=== PATIENT | male | born 1980 | race Caucasian/White ===

== ENCOUNTER 2016-08-14 09:40 | Emergency (ER) | payer BC ==
[~2016-08-14] VITALS: Ht 175.3 cm; Wt 99.5 kg
[~2016-08-14 09:40] MED LIST: MULT-506 PO; OXYM0.056 NAE; [UNRECOGNIZED DRUG - CODE] PO
[2016-08-14 09:42] VITALS: TEMP 37; Ht 175.3 cm; Wt 99.5 kg
[2016-08-14] MEDS ORDERED: PROMETHAZINE HCL INJ 6.25 MG in SODIUM CHLORIDE 0.9% 50ML 50 ML IV STA (10:26)
[2016-08-14] MEDS ORDERED: KETOROLAC TROMETHAMINE 30 MG/ML VIAL IV STA (10:26)
[2016-08-14] MEDS ORDERED: ONDANSETRON INJ 2 MG/ML 2 ML VIAL IV STA (10:26)
[2016-08-14] MEDS ORDERED: SODIUM CHLORIDE 0.9% 1000ML 1,000 ML IV STA ×2 (10:26)
--- NOTE | 2016-08-14 10:34 | EMERGENCY ROOM VISIT NOTE ---
History Report prepared by Cristina: Mayra Jackson Under the Supervision of: Dr. Godfrey Rendon M.D. First contact with patient: 10:23 Chief Complaint: ABDOMINAL PAIN Stated Complaint: SEVERE STOMACH PAIN, CRAMPING, DIZZINESS Nursing Triage Summary: severe abdominal pain. I have had 3 er visits in the past 6 weeks. I have lost 15 lbs since this all started. pain started again this morning about 5 am. pt denies n/v/d History of Present Illness The patient is a 35 year old male who presents to the Emergency Room with complaints of waxing and waning, diffuse abdominal pain that began this morning around 0500. He states that his discomfort ranges from 4-7/10 in severity, describing his pain as a stabbing and throbbing pain. The patient states that he has had three emergency department visits over the last six weeks. He states that first he was evaluated for pneumonia and three weeks ago he experienced uncontrolled diarrhea and vomiting. He notes that over the last three weeks he has had a weight loss of 15 lbs. The patient states that he has experienced nausea today, but denies any diarrhea. He states that he has had two bowel movements, noting that they were normal. The patient states that he has had abdominal and bowel problems for the past three years, stating that he has tried diet change multiple times. He states that gluten intolerance runs in his family. The patient denies eating any abnormal food, or being around anyone with similar symptoms. Source of History: patient Onset: 0500 this morning Position: abdomen Symptom Intensity: 4-7/10 Quality: stabbing, other (throbbing) Timing: waxes/wanes Associated Symptoms: + nausea Note: Associated symptoms: weight loss of 15 lbs. Review of Systems See HPI for pertinent positives & negatives. A total of 10 systems reviewed and were otherwise negative. Past Medical & Surgical Medical Problems: (1) No Known Active Medical Problems Family History Patient reports no known family medical history. Social History Smoking Status: Never Smoker Marital Status: Housing Status: lives with family Occupation Status: employed Current/Historical Medications Scheduled Ondasetron Odt (Zofran Odt), 4-8 MG SL Q6H Scheduled PRN Hyoscyamine Sulfate (Levsin), 0.125 MG PO Q6H PRN for Pain Allergies Coded Allergies: Amoxicillin (Verified Allergy, Intermediate, Rash, 08/14/16) Clavulanic Acid (Verified Allergy, Intermediate, Rash, 08/14/16) Physical Exam Vital Signs Date Time Temp Pulse Resp B/P Pulse Ox O2 Delivery O2 Flow Rate FiO2 08/14/16 12:40 87 16 114/67 97 08/14/16 11:51 83 16 118/74 97 08/14/16 09:42 37.0 94 18 125/84 97 Room Air Physical Exam GENERAL: Patient is in no acute distress. HEENT: No acute trauma, normocephalic atraumatic, mucous membranes moist, no nasal congestion, no scleral icterus. NECK: No stridor, no adenopathy, no meningismus, trachea is midline. LUNGS: Clear to auscultation bilaterally, no wheeze, no rhonchi, breath sounds equal. HEART: Without murmurs gallops or rubs, regular rate and rhythm. ABDOMEN: Mildly diffusely tender. Soft, bowel sounds positive, no hernias, no peritonitis. EXTREMITIES: No cyanosis or edema, full range of motion of all the joints without pain or difficulty, no signs for acute trauma. NEUROLOGIC: Oriented x 3, no acute motor or sensory deficits, no focal weakness. SKIN: No rash, no jaundice, no diaphoresis. Medical Decision & Procedures ER Provider Diagnostic Interpretation: X-ray results as stated below per interpretation by me and the radiologist: PA CHEST RADIOGRAPH AND UPRIGHT AND SUPINE AP RADIOGRAPHS OF THE ABDOMEN CLINICAL HISTORY: Nausea and diarrhea. COMPARISON STUDY: Chest radiograph and CT of the abdomen and pelvis July 15, 2016. FINDINGS: Lung volumes are normal. No pneumothorax or pleural effusion is present. Cardiac size is normal. Mediastinal contours are normal. There is no evidence of pulmonary edema. There is no free air. The bowel gas pattern is normal. IMPRESSION: 1. No free air or evidence of bowel obstruction. 2. No acute cardiopulmonary findings. Electronically signed by: David Yang M.D. 08/14/2016 11:51 AM Dictated Date/Time: 08/14/2016 11:51 AM Laboratory Results 08/14/16 11:05 Red Blood Count 5.29, Mean Corpuscular Volume 82.0, Mean Corpuscular Hemoglobin 29.9, Mean Corpuscular Hemoglobin Concent 36.4, Mean Platelet Volume 12.5, Neutrophils (%) (Auto) 86.0, Lymphocytes (%) (Auto) 7.5, Monocytes (%) (Auto) 6.0, Eosinophils (%) (Auto) 0.2, Basophils (%) (Auto) 0.2, Neutrophils # (Auto) 7.02, Lymphocytes # (Auto) 0.61, Monocytes # (Auto) 0.49, Eosinophils # (Auto) 0.02, Basophils # (Auto) 0.02 08/14/16 11:05 Test 08/14/16 11:00 08/14/16 11:05 Urine Color YELLOW Urine Appearance CLEAR (CLEAR) Urine pH 5.5 (4.5-7.5) Urine Specific [place] 1.018 (1.000-1.030) Urine Protein NEG (NEG) Urine Glucose (UA) NEG (NEG) Urine Ketones NEG (NEG) Urine Occult Blood NEG (NEG) Urine Nitrite NEG (NEG) Urine Bilirubin NEG (NEG) Urine Urobilinogen NEG (NEG) Urine Leukocyte Esterase NEG (NEG) White Blood Count 8.17 K/uL (4.8-10.8) Red Blood Count 5.29 M/uL (4.7-6.1) Hemoglobin 15.8 g/dL (14.0-18.0) Hematocrit 43.4 % (42-52) Mean Corpuscular Volume 82.0 fL (80-100) Mean Corpuscular Hemoglobin 29.9 pg (25-34) Mean Corpuscular Hemoglobin Concent 36.4 g/dl (32-36) Platelet Count 155 K/uL (130-400) Mean Platelet Volume 12.5 fL (7.4-10.4) Neutrophils (%) (Auto) 86.0 % Lymphocytes (%) (Auto) 7.5 % Monocytes (%) (Auto) 6.0 % Eosinophils (%) (Auto) 0.2 % Basophils (%) (Auto) 0.2 % Neutrophils # (Auto) 7.02 K/uL (1.4-6.5) Lymphocytes # (Auto) 0.61 K/uL (1.2-3.4) Monocytes # (Auto) 0.49 K/uL (0.11-0.59) Eosinophils # (Auto) 0.02 K/uL (0-0.5) Basophils # (Auto) 0.02 K/uL (0-0.2) RDW Standard Deviation 39.4 fL (36.4-46.3) RDW Coefficient of Variation 13.1 % (11.5-14.5) Immature Granulocyte % (Auto) 0.1 % Immature Granulocyte # (Auto) 0.01 K/uL (0.00-0.02) Anion Gap 10.0 mmol/L (3-11) Est Creatinine Clear Calc Drug Dose 117.6 ml/min Estimated GFR () 110.9 Estimated GFR (Non- 95.7 BUN/Creatinine Ratio 14.4 (10-20) Calcium Level 9.1 mg/dl (8.5-10.1) Total Bilirubin 0.6 mg/dl (0.2-1) Aspartate Amino Transf (AST/SGOT) 22 U/L (15-37) Alanine Aminotransferase (ALT/SGPT) 57 U/L (12-78) Alkaline Phosphatase 79 U/L (45-117) Total Protein 7.1 gm/dl (6.4-8.2) Albumin 4.1 gm/dl (3.4-5.0) Globulin 3.0 gm/dl (2.5-4.0) Albumin/Globulin Ratio 1.4 (0.9-2) Lipase 119 U/L (73-393) Laboratory results reviewed by me. Medications Administered Medications (Trade) Dose Ordered Sig/[place]rec[place] Route Start Time Stop Time Status Last Admin Dose Admin Ondansetron HCl 4 mg 4 mg NOW STAT IV 08/14/16 10:08/14/16 10:33 DC 08/14/16 11:09 4 MG Sodium Chloride 1,000 ml @ 999 mls/hr Q1H1M STAT IV 08/14/16 10:08/14/16 11:26 DC 08/14/16 10:26 999 MLS/HR Sodium Chloride (Nss 1000ml) 1,000 ml @ 200 mls/hr Q5H STAT IV 08/14/16 10:08/14/16 12:52 DC 08/14/16 11:55 200 MLS/HR Ketorolac Tromethamine 30 mg 30 mg NOW STAT IV 08/14/16 10:08/14/16 10:33 DC 08/14/16 11:11 30 MG Promethazine HCl/ Sodium Chloride (Phenergan Inj/ Nss 50ml) 50.25 ml @ 204 mls/hr NOW STAT IV 08/14/16 10:26 08/14/16 10:40 DC 08/14/16 11:11 204 MLS/HR ED Course 1025: The patient was evaluated in room C8. A complete history and physical exam was performed. 1026: Ordered Promethazine HCl 6.25 mg/Sodium Chloride 50.25 ml @ 204 mls/hr IV , Toradol Inj 30 mg IV, Sodium Chloride 1000 ml @ 200 mls/hr IV, Sodium Chloride 1000 ml @ 999 mls/hr IV, Zofran Inj 4 mg IV. 1213: I discussed the patients case with [facility]. She is going to see the patient in the office this week. 1216: I reevaluated the patient and he is resting comfortably. I discussed the exam findings with him and I discussed the treatment plan. He verbalized complete understanding and agreement. He is ready to go home. Medical Decision The patient is a 35 year old male who presents to the ED with complaints of abdominal pain. Differential diagnoses considered include Food borne illness, food allergy, lactose intolerance, viral illness, dehydration, anemia, electrolyte imbalance. There is no leukocytosis or concerning anemia. No significant electrolyte abnormality, kidney failure, hepatitis or pancreatitis. Urinalysis does not show infection. Obstruction series shows no free air, bowel obstruction or pneumonia. On exam, the patient was not febrile or toxic, there was no peritonitis. Patient received IV saline, IV Toradol, IV Zofran and IV Phenergan, he feels improved. The patient was reassured by his testing. I did contact GI and the patient will be seen this week for an evaluation. The patient is being discharged with Levsin for abdominal spasm, Zofran for nausea. He will slowly advance his diet. The cause for his complaints is not clear. Further outpatient workup is required. Consults Time Called: 1212 Consulting Physician: [facility] Returned Call: 1213 I discussed the patients case with [facility]. She is going to see the patient in the office this week. Impression Primary Impression: Diffuse abdominal pain Additional Impression: Nausea Scribe Attestation The scribe's documentation has been prepared under my direction and personally reviewed by me in its entirety. I confirm that the note above accurately reflects all work, treatment, procedures, and medical decision making performed by me. Departure Information Dispostion Home / Self-Care Prescriptions Ondasetron Odt (ZOFRAN ODT) 4 Mg Tab 4-8 MG SL Q6H for Nausea, #15 TAB Prov: Godfrey Rendon M.D. 08/14/16 Hyoscyamine Sulfate (Levsin) 0.125 Mg Tab 0.125 MG PO Q6H Y for Pain, #15 TAB Prov: Godfrey Rendon M.D. 08/14/16 Referrals No Doctor, Assigned (PCP) Forms Call Back Authorization, HOME CARE DOCUMENTATION FORM, IMPORTANT VISIT INFORMATION, Work Instructions Patient Instructions [facility] [employer] Additional Instructions bland diet---crackers, soup, toast, gatorade zofran 1-2 tab every 6 hours for nausea levsin tab every 6 hours for abdominal spasms and pain see GI this week return for worsening symptoms Problem Qualifiers
[2016-08-14 11:31] LABS: BASO % 0.2 %; BASO ABS # 0.02 K/uL (0-0.2); COMPLETE YES; EOS % 0.2 %; HEMATOCRIT 43.4 % (42-52); IG% 0.1 %; LYMPH % 7.5 %; LYMPH ABS # 0.61 K/uL (1.2-3.4); MEAN CORPUSCULAR HEMOGLOBIN 29.9 pg (25-34); MEAN CORPUSCULAR HGB CONC 36.4 g/dl (32-36); MEAN PLATELET VOLUME 12.5 fL (7.4-10.4); PLATELET COUNT 155 K/uL (130-400); RED BLOOD COUNT 5.29 M/uL (4.7-6.1); WHITE BLOOD COUNT 8.17 K/uL (4.8-10.8)
[2016-08-14 11:38] LABS: BUN/CREATININE RATIO 14.4 (10-20); CALCIUM 9.1 mg/dl (8.5-10.1); POTASSIUM 3.9 mmol/L (3.5-5.1)
[2016-08-14 11:42] LABS: ALB/GLOB RATIO 1.4 (0.9-2)
[2016-08-14 11:44] LABS: URINE APPEARANCE CLEAR (CLEAR); URINE BILIRUBIN NEG (NEG); URINE COLOR YELLOW; URINE NITRITE NEG (NEG); URINE PH 5.5 (4.5-7.5); URINE SPECIFIC GRAVITY 1.018 (1.000-1.030); UROBILINOGEN NEG (NEG); ZZUR CULT IF INDIC CLEAN CATCH NO
[2016-08-14 11:49] LABS: MANUAL MICROSCOPIC REQUIRED? NO; REVIEW REQ? NO
--- NOTE | 2016-08-14 11:53 | DIAGNOSTIC IMAGING REPORT ---
PA CHEST RADIOGRAPH AND UPRIGHT AND SUPINE AP RADIOGRAPHS OF THE ABDOMEN CLINICAL HISTORY: Nausea and diarrhea. COMPARISON STUDY: Chest radiograph and CT of the abdomen and pelvis July 15, 2016. FINDINGS: Lung volumes are normal. No pneumothorax or pleural effusion is present. Cardiac size is normal. Mediastinal contours are normal. There is no evidence of pulmonary edema. There is no free air. The bowel gas pattern is normal. IMPRESSION: 1. No free air or evidence of bowel obstruction. 2. No acute cardiopulmonary findings. Electronically signed by: David Yang M.D. 08/14/2016 11:51 AM Dictated Date/Time: 08/14/2016 11:51 AM
[2016-08-14] MEDS ORDERED: ONDA4TAB10 SL (12:29)
[2016-08-14] MEDS ORDERED: HYOS1TAB PO (12:29)
[2016-08-14 12:40] VITALS: BP 114/67; PULSE 87; O2SAT 97
== END 2016-08-14 12:41 | disposition home or self-care (01) ==
LOC: C.EDB 09:41 → C.EDC 12:41
DX: R10.9 Unspecified abdominal pain (principal); R11.0 Nausea